=== PATIENT | female | born 2000 | race Caucasian/White ===

== ENCOUNTER 2021-10-11 11:45 | Emergency (ER) | payer BC ==
[~2021-10-11] VITALS: Ht 167.6 cm; Wt 61.3 kg
[2021-10-11 12:09] VITALS: BP 121/77
[2021-10-11 12:30] VITALS: BP 117/69
[2021-10-11 14:00] VITALS: BP 117/69
== END 2021-10-11 14:00 | disposition home or self-care (01) | DRG 605 ==
LOC: ED 11:45
PROC: 0HQGXZZ Repair Left Hand Skin, External Approach (ICD-10-PCS; principal; 2021-10-11)
DX: S61.412A Laceration without foreign body of left hand, initial encounter (principal); F17.290 Nicotine dependence, other tobacco product, uncomplicated; W26.0XXA Contact with knife, initial encounter; Y93.G3 Activity, cooking and baking; Y92.000 Kitchen of unspecified non-institutional (private) residence as the place of occurrence of the external cause